=== PATIENT | male | born 1995 | race Caucasian/White ===

== ENCOUNTER 2024-12-08 15:19 | Emergency (ER) | payer BC ==
[2024-12-08 15:32] LABS: BASOPHILS ABSOLUTE AUTO 0.02 K/uL (0.00-0.20); BASOPHILS PERCENT AUTO 0.3 % (0.0-1.0); EOSINOPHILS ABSOLUTE AUTO 0.17 K/uL (0.00-0.45); EOSINOPHILS PERCENT AUTO 2.4 % (0.0-6.0); HEMATOCRIT 45.2 % (42.0-52.0); HEMOGLOBIN 16.1 g/dL (14.0-18.0); IMMATURE GRAN ABSOLUTE AUTO 0.01 K/uL (0.00-0.05); IMMATURE GRAN PERCENT AUTO 0.1 % (0.0-0.4); LYMPHOCYTES ABSOLUTE AUTO 1.94 K/uL (1.00-4.80); LYMPHOCYTES PERCENT AUTO 27.7 % (24.0-44.0); MEAN CORPUSCULAR HEMOGLOBIN 29.7 pg (28.0-32.0); MEAN CORPUSCULAR HGB CONC 35.6 g/dL (32.0-36.0); MEAN CORPUSCULAR VOLUME 83.4 fL (83.0-99.0); MEAN PLATELET VOLUME 9.9 fL (9.4-12.4); MONOCYTES ABSOLUTE AUTO 0.48 K/uL (0.00-0.80); MONOCYTES PERCENT AUTO 6.8 % (0.0-8.0); NEUTROPHILS ABSOLUTE AUTO 4.39 K/uL (1.80-7.70); NEUTROPHILS PERCENT AUTO 62.7 % (41.0-71.0); PLATELET COUNT,PLT 201 K/uL (150-400); RED BLOOD CELL COUNT 5.42 M/uL (4.52-5.90); WHITE BLOOD CELL COUNT,WBC 7.01 K/uL (3.9-11.3)
[2024-12-08] MEDS: LORazepam 2 MG/ML SDV IVPUSH ONE (15:57)
[2024-12-08 16:00] LABS: A/G RATIO 1.5 (0.9-1.6); ALANINE AMINOTRANSFERASE,ALT 28 IU/L (14-63); ALBUMIN 4.8 g/dL (3.4-5.0); ALKALINE PHOSPHATASE 72 U/L (46-116); ASPARTATE AMNIOTRANSFERASE,AST 16 IU/L (15-37); BILIRUBIN TOTAL 0.5 mg/dL (0.2-1.0); BLOOD UREA NITROGEN,BUN 13 mg/dL (7.0-18.0); CALCIUM 9.8 mg/dL (8.5-10.1); CARBON DIOXIDE,CO2 28.1 mmol/L (21.0-32.0); CHLORIDE,CL 101 mmol/L (98-107); CREATININE 1.1 mg/dL (0.8-1.3); EST CRCL DRUG DOSING (CG) 90.22 mL/min; ESTIMATED GFR 94 mL/min (>60); GLUCOSE RANDOM 94 mg/dL (74-106); LIPASE 27 U/L (16-77); MAGNESIUM 1.8 mg/dL (1.8-2.4); POTASSIUM,K 3.5 mmol/L (3.5-5.1); PRO B-TYPE NATRIUR PEPT,BNPPRO 7 pg/mL (0-125); SODIUM,NA 139 mmol/L (136-148)
== END 2024-12-08 16:41 | disposition home or self-care (01) ==
LOC: MW.ED 15:19
DX: R07.9 Chest pain, unspecified (principal); R00.2 Palpitations; Z79.899 Other long term (current) drug therapy; Z86.59 Personal history of other mental and behavioral disorders
CPT/HCPCS: 36415; 71045; 71045-26; 80053; 83690; 83735; 83880; 84484; 85025; 93005; 93010; 99284; 99285